=== PATIENT | female | born 1975 | race African-American/Black ===

== ENCOUNTER 2018-12-14 08:03 | Emergency (ER) | payer OTHER ==
[~2018-12-14] VITALS: Ht 175.3 cm; Wt 93.4 kg
[2018-12-14] MEDS ORDERED: PRENATABS RX T1 EAC1 PO (08:16)
[2018-12-14] MEDS ORDERED: PROTONIX40 M2 PO (08:17)
[2018-12-14] MEDS ORDERED: SPIRONOLACTONE25 M1 PO (08:17)
[2018-12-14] MEDS ORDERED: SINGULAIR 10 MG10 M1 PO (08:18)
[2018-12-14] MEDS ORDERED: HYDROXYZINE HCL25 M1 PO (08:18)
[2018-12-14] MEDS ORDERED: CARVEDILOL12.5 MG PO (08:18)
[2018-12-14] MEDS ORDERED: PREDNISOLONE 5 M5 M1 PO (08:20)
[2018-12-14] MEDS ORDERED: VENTOLIN HFA 1818 GM INH (08:20)
--- NOTE | 2018-12-14 08:45 | EKG ---
[place] [address] [facility] [place] [address] ELECTROCARDIOGRAM REPORT Name: MAURICIO COLBERT Room #: REG [facility]ON Talley#: [id number] ������������������ Admission: 12/14/18 ������������������ Attend Phys: Discharge: ������������������ Date of : 77 Report #: [id number] ����������������������������������������������������������������� [id number] THIS REPORT FOR: //name// [facility] ED Test Date: 2018-12-14 Test Time: 08:19:28 Pat Name: MAURICIO COLBERT Department: Room: Gender: F Business Unit Leader: ROGER : 1975 Requested By: Hussein Tejeda Order Number: [id number] MD: Lev Lopez Measurements Intervals [place] Rate: 71 P: 80 DC: 112 QRS: 13 QRSD: 85 T: 50 QT: 401 QTc: 436 Interpretive Statements Sinus rhythm Borderline short DC interval No previous ECG available for comparison Electronically Signed On 12-14-2018 8:45:49 CDT by Lev Lopez [email or web address] ��������������������������������������������� <ELECTRONICALLY SIGNED> ���������������������������������������� By: Lev Lopez MD, [facility] ��������������������������������������������� 12/14/18 0845 0819 8 Lev Lopez MD, FAC /EPI
[2018-12-14 09:39] VITALS: BP 163/98
== END 2018-12-14 09:39 | disposition home or self-care (01) ==
LOC: ER 08:03
DX: I10 Essential (primary) hypertension (principal); R06.02 Shortness of breath; J45.909 Unspecified asthma, uncomplicated; F41.9 Anxiety disorder, unspecified